=== PATIENT | male | born 1970 | race Caucasian/White ===

== ENCOUNTER 2020-06-22 08:31 | Outpatient (NON) | payer OTHER, SELFPAY ==
[2020-06-22 16:56] LABS: SARS-CoV-2 RNA PCR Positive
== END 2020-06-22 08:32 ==
LOC: ANHCOVIDDT 08:32
PROVIDERS: Family Provider Family Medicine; PCP Family Medicine; Visit Provider Physician Assistant
DX: U07.1 COVID-19 (principal)
CPT/HCPCS: C9803; U0003; U0005

== ENCOUNTER 2021-03-20 01:19 | Day surgery (SDC) | payer OTHER, SELFPAY ==
[2021-03-14 15:26] VITALS: BMI 31.4
--- NOTE | 2021-03-15 16:47 | PM.IMHP ---
H&P: HPI History of Present Illness Date/Time: 03/15/21 16:47 Chief Complaint: Hoarse voice, right vocal cord lesion Narrative: patient presents for planned surgical procedure. No change in symptoms no change in medical history. Review of Systems Constitutional: Constitutional: Denies fatigue, Denies fever(s) and Denies lethargy Eyes: Eyes: Denies blurry vision and Denies change in vision ENT: Reports as per HPI Cardiovascular: Cardiovascular: Denies chest pain Respiratory: Respiratory: Denies cough Endocrine: Endocrine: Denies fatigue Hematologic/Lymphatic: Hematologic/Lymphatic: Denies easy bleeding, Denies easy bruising and Denies lymphadenopathy Allergic/Immunologic: Allergic/Immunologic: Denies seasonal rhinorrhea [facility] Social History Social History Years smoked: 10 Smoking status: Former smoker Tobacco type: cigarettes Smoking end date: 05/26/05 Alcohol intake: never Substance use: never Substance use type: does not use Living arrangements: with family Spiritual care concerns: No Meds Home Medications and Allergies Home Medications Medication Instructions Recorded Confirmed Type cetirizine [Zyrtec] 10 mg PO DAILY 03/14/21 03/14/21 History omeprazole [Prilosec] 20 mg PO DAILY 03/14/21 03/14/21 History Allergies Allergy/AdvReac Type Severity Reaction Status Date / Time No Known Allergies Allergy Verified 03/14/21 15:25 Exam Const: General: cooperative, healthy appearing, comfortable, well developed and alert HENMT: Head: normal to inspection, normocephalic and atraumatic Ears: hearing grossly normal bilaterally, external ears normal, TM's normal bilaterally and EAC's normal General nose exam: Normal external nose present, Normal nares present, No nasal polyps present, Normal nasal mucous membranes and turbinates present and Normal septum present Face and sinus: normal facial exam Mouth: Yes Normal oral and palatal mucosa present, Yes lip normal, Yes tongue normal, Yes oropharynx normal and Yes moist mucous membranes Teeth and gingiva: dentition normal and gingiva normal Throat: posterior oropharynx normal, tonsils normal and uvula midline Eyes: General: appearance normal, both eyes and all related structures Periorbital: periorbital findings normal Eyelids: eyelids normal Conjunctivae: conjunctivae normal Sclera: sclerae normal Neck: Neck: normal visual inspection, full ROM and no lymphadenopathy Thyroid: thyroid normal Lymphatic: no lymphadenopathy noted Resp: Effort & Inspection: normal respiratory effort and able to speak in complete sentences Cardio: Jugular venous distension: no JVD Neuro: Cranial nerves: Yes CN's II-XII intact bilaterally Assessment and Plan Assessment and plan (1) Lesion of vocal cord: Code(s): J38.3 - Other diseases of vocal cords Status: Acute Assessment and Plan: Plan is for the OR for Microdirect laryngoscopy with biopsy to rule out any more sinister process. Risks and benefits were discussed in great detail including bleeding infection damage to surrounding structures damage to teeth throat pain musculoskeletal damage in the need for further procedures. Patient voiced understanding and agreed. Total operative time approximately 15 minutes (2) Throat pain: Code(s): R07.0 - Pain in throat Status: Acute (3) Hoarse voice quality: Code(s): R49.0 - Dysphonia Status: Acute
--- NOTE | 2021-03-19 16:22 | WPDANESEPPF ---
Anes - Initial Pre Proc Eval Procedure: Operation Date: 03/20/21 12:30 Proposed Procedures p Micro Direct Laryngoscopy, Laryngeal Biopsy - Memo Guevara MD Date/Time: 03/19/21 16:22 Surgeon: Memo Guevara MD Pre Op Diagnosis: vocal cord polyp Patient Data Age: 51 Gender: M Height: 1.8 m Weight: 102 kg Allergies Allergy/AdvReac Type Severity Reaction Status Date / Time No Known Allergies Allergy Verified 03/20/21 10:33 Home Medications Medication Instructions Recorded Confirmed Type cetirizine [Zyrtec] 10 mg PO DAILY 03/14/21 03/20/21 History omeprazole [Prilosec] 20 mg PO DAILY 03/14/21 03/20/21 History Patient hx anesthesia problems: none Family hx anesthesia problems: none Results Review: All pre-operative results and documents have been reviewed as part of the pre-operative evaluation. [facility] Past Medical History Medical History (Updated 03/19/21 @ 16:24 by Jay Crook MD) Chronic GERD Lesion of vocal cord Obesity Ureterolithiasis Social History Social History Years smoked: 10 Smoking status: Former smoker Tobacco type: cigarettes Smoking end date: 05/26/05 Alcohol intake: never Substance use: never Substance use type: does not use Living arrangements: with family Spiritual care concerns: No Anes - Eval Final PreProcedure Day of Procedure 03/19/21 16:22 Patient weight: obese Heart: regular rate and rhythm Lungs: clear to auscultation and normal air movement Airway: Mallampati scale class II Neurological: alert and oriented Last oral intake: >/= 8 hours ASA classification: II Emergent: no Anesthetic plan: proceed Anesthesia type and monitoring: general ETT Results Review: All pre-operative results and documents have been reviewed as part of the pre-operative evaluation. Informed Consent: The patient's anesthetic plan and its attendant risks and benefits were discussed with the patient/family/POA. Questions were solicited and answers provided to the satisfaction of the patient/family/POA.
[2021-03-20] VITALS (7 sets, daily range): BP systolic 121–134; BP diastolic 76–86; PULSE 52–75; RESP 12–18; TEMP 36.3–36.4; O2SAT 97–100
--- NOTE | 2021-03-20 07:10 | WPDHPUPDATE1 ---
History and Physical Update Update Date/Time: 03/20/21 07:10 History and Physical has been reviewed, including an updated exam of the patient. There are NO changes in the patient's condition. Risks, benefits, and alternatives have been discussed and questions answered. Patient agrees to proceed with procedure.
[2021-03-20] MEDS: LACTATED RINGERS 1,000 ML 30 ML IV CONT ×2 (10:56→12:55)
[2021-03-20] MEDS: OXYMETAZOLINE HCL 0.05% NAS 15 ML BTL (*BKC) 1 SPRAY NASAL (12:38)
[2021-03-20] MEDS: LIDOCAINE HCL 4% LOCAL INJ 5 ML AMP INFILTRATE (12:41)
--- NOTE | 2021-03-20 12:57 | W.PM.PROC2 ---
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 Patient brought to OR. Time-out performed. General anesthesia induced endotracheal tube secured the patient's airway. Bed rotated. Patient prepped and draped. Second time-out performed. [facility] laryngoscope placed in the patient's airway following placement of maxillary tooth mouth guard. Cords brought into view. Patient suspended. 4% lidocaine sprayed over the cords total of 1 cc. Endoscope brought into the field lesion brought into view aforementioned findings noted. Biopsy taken of right posterior vocal cord with up-biting and straight small and large cup forceps. Sufficient tissue for analysis obtained. Hemostasis achieved using application of Afrin-soaked pledgets for approximately 3 minutes. Pledgets removed endoscope reinserted no bleeding noted. Laryngoscope removed after being taken out of suspension. Maxillary tooth mouth guard removed. No loose dentition no blood. Care the patient was turned over to Anesthesiology. Blood loss 1 cc. I performed all dictated portions of the procedure. Estimated Blood Loss 1 Drains No Packing No Pathology yes Complications No immediate complications Condition stable Disposition PACU
[2021-03-20] MEDS: fentaNYL CITRATE INJ (*CRX) 100 MCG/2 ML VIAL 25 MCG IV PUSH ×2 (13:30→13:33)
[2021-03-20] MEDS: ONDANSETRON INJ 4 MG/2 ML VIAL IV PUSH (14:15)
== END 2021-03-20 14:39 | disposition home or self-care (01) ==
PROVIDERS: PCP Family Medicine; Visit Provider Otolaryngology
PROC: 0CJS8ZZ Inspection of Larynx, Via Natural or Artificial Opening Endoscopic (ICD-10-PCS; CPT 31535; principal; 2021-03-20 12:30)
DX: J38.3 Other diseases of vocal cords (principal); R07.0 Pain in throat; R49.0 Dysphonia; K21.9 Gastro-esophageal reflux disease without esophagitis; E66.9 Obesity, unspecified; Z68.31 Body mass index [BMI] 31.0-31.9, adult; Z87.891 Personal history of nicotine dependence
CPT/HCPCS: 31535; 88305; 88312; A9270; J0330; J1100; J2250; J2405; J2704; J3010; J7120

== ENCOUNTER 2022-04-01 08:38 | Outpatient (CLI) | payer OTHER, SELFPAY ==
--- NOTE | 2022-04-01 11:09 | ECHO_ITS ---
Patient Info Name: Joel Muniz Age: 52 years : 1970 Gender: Male Ht: 71 in Wt: 198 lbs BSA: 2.14 m2 HR: 55 bpm BP: 142 / 88 mmHg Technical Quality: Good Exam Date: 04/01/2022 11:31 AM Exam Location: [facility] Pulmonary Patient Status: Outpatient Admit Date: 04/01/2022 Staff Ordering Physician: Ronni Dang DO Human Factors Scientist: Junaid Bain RDCS, RT Attending Provider: Rnoni Dang DO Referring Physician: Alton MOHAN; Exam Type: CA echo doppler color flow Study Info Indications R00.2 - Palpitations Complete two-dimensional, color flow and Doppler transthoracic echocardiogram is performed. Strain analysis performed. Summary 1. Complete two-dimensional, color flow and Doppler transthoracic echocardiogram is performed. 2. Left ventricular chamber dimension is normal. 3. Left ventricular systolic function is normal, estimated at 60-65%. 4. The left ventricular diastolic function is grade II diastolic dysfunction. 5. E/e' 6 is not elevated. 6. Global longitudinal strain is normal at -19.8%. 7. There is mild mitral valve regurgitation. 8. There is trace tricuspid valve regurgitation. Left Ventricle E/e' 6 is not elevated. Global longitudinal strain is normal at -19.8%. Left ventricular chamber dimension is normal. Left ventricular systolic function is normal, estimated at 60-65%. The left ventricular diastolic function is grade II diastolic dysfunction. Right Ventricle Right ventricular systolic function is normal and with normal TAPSE 2.5 cm. Right ventricular chamber dimension is normal. Left Atria Left atrial chamber dimension is normal. Right Atria Right atrial chamber dimension is normal. Aortic Valve The aortic valve is trileaflet. There is no aortic valve stenosis. There is no aortic valve regurgitation. Pulmonic Valve There is no pulmonic regurgitation. Mitral Valve There is no mitral valve stenosis. There is mild mitral valve regurgitation. Tricuspid Valve There is trace tricuspid valve regurgitation. RVSP is not calculated due to an inadequate TR jet. Pericardium/Pleural There is no pericardial effusion. Inferior Vena Cava Normal inferior vena cava with >50% collapse upon inspiration consistent with normal right atrial pressure, 5 mmHg. Aorta The aortic root size at the sinus of Valsalva is normal. Left Ventricular Outflow Tract Name Value Normal LVOT 2D LVOT Diameter 2.1 cm LVOT Doppler LVOT Peak Gradient 3 mmHg LVOT Mean Gradient 2 mmHg LVOT VTI 21 cm LVOT VTI/AV VTI Ratio 0.9 LVOT Stroke Volume 74 ml LVOT CO 3.9 l/min LVOT CI 1.8 l/min/m2 Mitral Valve Name Value Normal MV Doppler
== END 2022-04-01 08:39 | disposition home or self-care (01) ==
PROVIDERS: PCP Family Medicine; Visit Provider Internal Medicine Cardiovascular Disease
DX: R00.2 Palpitations (principal); I34.0 Nonrheumatic mitral (valve) insufficiency
CPT/HCPCS: 93306

== ENCOUNTER → 2022-04-09 09:00 | Outpatient (CLI) | payer OTHER, SELFPAY ==
--- NOTE | ~2022-04-09 | CT_ITS ---
EXAMINATION: CT brain wo con DATE: 04/09/2022 09:18 INDICATION: Headaches, gait disturbance, visual disturbance. Dizziness. TECHNIQUE: Computed tomography (CT) of the head was performed without intravenous contrast. The mA wa s adjusted according to patient size. Iterative reconstruction technique was employed. Exam dose: 59 9.57 mGy-cm total exam DLP. COMPARISON: None FINDINGS: No intracranial mass lesion or hemorrhage or cerebrovascular accident. No midline shift or mass effect effect. Normal ventricular size. Normal rossi-white matter differentiation. No subdural or epidural hematoma. The mastoid air cells are normally developed and aerated. Included paranasal sinuses are unremarkable . No fracture or bone destruction of the cranial vault. IMPRESSION: No significant abnormality Reviewed, dictated and finalized at [facility]. Reviewed, dictated and finalized at location [facility]. ELEVATOR WORKER IMPRESSION: No significant abnormality
== END ==
PROVIDERS: PCP Family Medicine; Visit Provider Physician Assistant
DX: R51.9 Headache, unspecified (principal); R26.89 Other abnormalities of gait and mobility; H53.9 Unspecified visual disturbance; R42 Dizziness and giddiness
CPT/HCPCS: 70450

== ENCOUNTER 2024-06-03 08:27 | Outpatient (CLI) | payer OTHER, SELFPAY ==
--- NOTE | 2024-06-03 08:31 | EST_ITS ---
Patient Info Name: Joel Muniz Age: 54 years : 1970 Gender: Male Ht: 71 in Wt: 190 lbs BSA: 2.09 m2 HR: 56 bpm BP: 114 / 71 mmHg Heart Rhythm: Sinus Rhythm Exam Date: 06/03/2024 8:53 AM Patient Status: Outpatient Admit Date: 06/03/2024 Staff Ordering Physician: Ronni Dang DO Attending Provider: Ronni Dang DO Exercise Technologist: Agatha Neri CT Exercise Physician: Ronni Dang DO Exam Type: CA stress test treadmill Study Info Indications R07.89 - Other chest pain An exercise stress test was performed. Summary 1. 1. Negative Ton exercise stress test for ischemic ST changes by ECG criteria. 2. 2. Good functional capacity, achieving 12 METs of workload. 3. 3. Appropriate HR response to exercise. 4. 4. Appropriate HR recovery at 1 minute post exercise. 5. 5. No imaging with stress testing. 6. 6. Patient informed of the above results. Protocol: Ton Stress ECG Details Stage: REST Duration (min): 1 min : 6 sec Speed (mph): 0.0 Grade (%): 0 HR (bpm): 55 SBP (mmHg): 114 DBP (mmHg): 71 METS: --- Stage: REST Duration (min): 4 min : 46 sec Speed (mph): 0.0 Grade (%): 0 HR (bpm): 64 SBP (mmHg): 114 DBP (mmHg): 71 METS: --- Stage: STAGE 1 Duration (min): 1 min : 0 sec Speed (mph): 1.7 Grade (%): 10 HR (bpm): 82 SBP (mmHg): 114 DBP (mmHg): 71 METS: --- Stage: STAGE 1 Duration (min): 2 min : 0 sec Speed (mph): 1.7 Grade (%): 10 HR (bpm): 82 SBP (mmHg): 114 DBP (mmHg): 71 METS: --- Stage: STAGE 1 Duration (min): 3 min : 0 sec Speed (mph): 1.7 Grade (%): 10 HR (bpm): 80 SBP (mmHg): 137 DBP (mmHg): 73 METS: --- Stage: STAGE 2 Duration (min): 1 min : 0 sec Speed (mph): 2.5 Grade (%): 12 HR (bpm): 92 SBP (mmHg): 137 DBP (mmHg): 73 METS: --- Stage: STAGE 2 Duration (min): 2 min : 0 sec Speed (mph): 2.5 Grade (%): 12 HR (bpm): 94 SBP (mmHg): 141 DBP (mmHg): 74 METS: --- Stage: STAGE 2 Duration (min): 3 min : 0 sec Speed (mph): 2.5 Grade (%): 12 HR (bpm): 93 SBP (mmHg): 141 DBP (mmHg): 74 METS: --- Stage: STAGE 3 Duration (min): 1 min : 0 sec Speed (mph): 3.4 Grade (%): 14 HR (bpm): 107 SBP (mmHg): 136 DBP (mmHg): 82 METS: --- Stage: STAGE 3 Duration (min): 2 min : 0 sec Speed (mph): 3.4 Grade (%): 14 HR (bpm): 111 SBP (mmHg): 136 DBP (mmHg): 82 METS: --- Stage: STAGE 3 Duration (min): 3 min : 0 sec Speed (mph): 3.4 Grade (%): 14 HR (bpm): 113 SBP (mmHg): 234 DBP (mmHg): 82 METS: --- Stage: STAGE 4 Duration (min): 1 min : 0 sec Speed (mph): 4.2 Grade (%): 16 HR (bpm): 131 SBP (mmHg): 189 DBP (mmHg): 86 METS: --- Stage: STAGE 4 Duration (min): 2 min : 0 sec Speed (mph): 4.2 Grade (%): 16 HR (bpm): 136 SBP (mmHg): 188 DBP (mmHg): 87 METS: --- Stage: STAGE 4 Duration (min): 2 min : 38 sec Speed (mph): 4.2 Grade (%): 16 HR (bpm): 140 SBP (mmHg): 188 DBP (mmHg): 87 METS: --- Stage: RECOVERY Duration (min): 0 min : 21 sec Speed (mph): 0.0 Grade (%): 0 HR (bpm): 133 SBP (mmHg): 188 DBP (mmHg): 87 METS: --- Stage: RECOVERY Duration (min): 1 min : 21 sec Speed (mph): 0.0 Grade (%): 0 HR (bpm): 97 SBP (mmHg): 188 DBP (mmHg): 87 METS: --- Stage: RECOVERY Duration (min): 2 min : 21 sec Speed (mph): 0.0 Grade (%): 0 HR (bpm): 71 SBP (mmHg): 188 DBP (mmHg): 87 METS: --- Stage: RECOVERY Duration (min): 3 min : 11 sec Speed (mph): 0.0 Grade (%): 0 HR (bpm): 79 SBP (mmHg): 130 DBP (mmHg): 93 METS: --- Rest HR: 64 bpm Peak HR: 140 bpm Rest Sys BP: 114 mmHg Peak Sys BP: 188 mmHg Max Pred HR: 165 bpm % Max Pred HR: 85 % Target HR: 140 bpm Max RPP: 26,320 bpm*mmHg Costello Score: -1 Termination Reason: Reached target heart rate or workload Cardiac Symptoms: None Max ST Seg Deviation: 2.50 mm Total Time: 11 min : 38 sec Rest Howard BP: 71 mmHg Peak Howard BP: 82 mmHg Angina Score: None Total METS: 12.1 Resting ECG Sinus rhythm. Stress ECG No ST changes. Arrhythmias None. Report Signatures
== END 2024-06-03 08:28 | disposition home or self-care (01) ==
PROVIDERS: PCP Family Medicine; Visit Provider Internal Medicine Cardiovascular Disease
DX: R07.9 Chest pain, unspecified (principal)
CPT/HCPCS: 93017

== ENCOUNTER 2024-10-20 00:57 | Day surgery (SDC) | payer OTHER, SELFPAY ==
[2024-10-12 11:01] VITALS: BMI 27.9
--- OUTSIDE RECORDS SUMMARY | 2024-10-20 00:59 | XMS_ITS ---
Author Organization [facility] Address [address] [address] Care Team Providers Care Reimbursement Specialist Name Role Phone Alejandro Reed Primary Care Provider SANTIAGO Goodwin Unavailable [phone] Medications Medication SIG (Take, Route, Frequency, Duration) Notes Start Date End Date Status Metoprolol Succinate ER 25 MG Oral for 90 Days Active ZyrTEC Active PriLOSEC Active Encounters Encounter Location Date Provider Diagnosis [address] [id number] 07/12/2024 SANTIAGO NOVOA Plan Of Treatment No Information Progress Notes * AARON, JoelDOB:1970 (54 yo M)Acc No.[id number]:07/12/2024 Patient: Joel JORDAN Provider: Ramy Novoa MD :1970 A ge:54 Y S ex:Male Date:07/12/2024 Address:[address] [place] [address] Pcp:Alejandro Reed Subjective: * Chief Complaints: * * Medical History: * Medications: T aking PriLOSEC , Taking ZyrTEC , Taking Metoprolol Succinate ER 25 MG Tablet Extended Release 24 Hour Oral Objective: * Vitals: Assessment: Plan: * Treatment: * * Electronic signature of DUNG NOVOA MD on 10/20/2024 at 12:59 AM CDT Sign off status: Pending * Provider: Ramy Novoa MD Date: 07/12/2024 Generated for Sari miguel/Stephani/eTlandonsmitting on: 10/20/2024 12:59 AM CDT
--- OUTSIDE RECORDS SUMMARY | 2024-10-20 01:00 | XMS_ITS | Patient Health Record ---
Author Organization [facility] Address [address] [facility] [address] [place] [address] Care Team Providers Care Skid Man Name Role Phone Alejandro Reed Primary Care Provider SANTIAGO Goodwin Unavailable [phone] Reason For Referral No Information Medications Medication SIG (Take, Route, Frequency, Duration) Notes Start Date End Date Status ZyrTEC Active Metoprolol Succinate ER 25 MG Oral for 90 Days Active PriLOSEC Active Social History Tobacco Use: Social History Observation Description Date Details (start date - stop date) Never Smoker NA - NA Tobacco Control (Standard) Question Answer Notes Tobacco use: Nonsmoker AUDIT-C (Standard) Question Answer Notes Did you have a drink contain ing alcohol in the past year? Yes How often did you have a dri nk containing alcohol in the past year? 2 to 4 times a month (2 points) How many drinks did you have on a typical day when you were drinking in the past year? 1 or 2 drinks (0 point) How often did you have six o r more drinks on one occasion in the past year? Less than monthly (1 point) Points 3 Interpretation Negative Vital Signs Heart Rate 56 /min 07/02/2024 Blood pressure diastolic 78 mm Hg 07/02/2024 Height 71 in 07/02/2024 Blood pressure systolic 120 mm Hg 07/02/2024 Weight 200 lbs 07/02/2024 BMI 27.89 kg/m2 07/02/2024 Encounters Encounter Location Date Provider [facility] [address] [id number] 07/12/2024 SANTIAGO NOVOA [address] [id number] 07/19/2024 SANTIAGO NOVOA [facility] [address] [facility] [address] [place] [address] 07/02/2024 SANTIAGO NOVOA Palpitations R00.2 and Dizziness and giddiness R42 [facility] [address] [facility] [address] [place] [address] 07/02/2024 SANTIAGO NOVOA [facility] [address] [facility] [address] [place] [address] 07/12/2024 SANTIAGO NOVOA [facility] [address] [facility] [address] [place], [place] [phone] 08/05/2024 SANTIAGO NOVOA Assessments Encounter Date Diagnosis (ICD Code) Assessment Notes Treatment Notes Treatment Clinical Notes Section Notes 07/02/2024 Palpitations (ICD-10 - R00.2) Significantly symptomatic palpitations and abnormal 2-4 weeks monitoring in the last 2 years,echo orderd,spells of palpitations limiting him.Echo today ok,will benefit from ilr for better diagnosis and treatment options since has had abnormal but inconclusive monitors and remains symptomatic.Will add/increase Mg supplemet to bid,ok to continue with toprol 07/02/2024 Dizziness and giddiness (ICD-10 - R42) Plan Of Treatment No Information Insurance Providers Payer Name Payer Address Payer Phone Subscriber Number Group Number Insured Name Patient Relationship to Insured Coverage Start Date Coverage End Date [employer] [address] [address] [facility] [place] [address] [id number] Joel Muniz Self - patient is the insured Medical (General) History Medical History History ICD Code Heart Murmur Kidney Stones Surgical History Surgery Date(Month/Year) Shoulder 2012 Kidney Stones 2006 Parotidectomy 2014 Labrum
--- OUTSIDE RECORDS SUMMARY | 2024-10-20 01:00 | XMS_ITS | CONTINUITY OF CARE DOCUMENT ---
Author Name nadia zuniga Address Unknown Organization [facility] Address [address] [facility] [facility] [address] [place] [address] Phone [phone] Care Team Providers Care Dietary Services Director Name Role Phone Werner YOU, Marcos Unavailable [phone] JOY NOLASCO MD Unavailable JOY NOLASCO MD Unavailable PROBLEMS Condition Status Date Provider Notes Palpitations active Pattie Willis Chest pain active Pattie Willis ENCOUNTERS Date Type Provider Location Encounter Diag nosis - In-person encounter Office Visit Marcos Caldera MD [facility] Office VITAL SIGNS Date Observation Value Provider blood pressure, diastolic 70 mm[Hg] Mickey Billy blood pressure, systolic 124 mm[Hg] Donato Billy pulse rate 61 /min Farhana Billy oxygen saturation, oximetry 99 % Farhana Billy respiratory rate E&M 18 /min Farhana Billy Body Mass Index (Ratio) 31.46 kg/m2 Cindy Billy height E&M 72 [in_i] Farhana Billy weight E&M 232 [lb_av] Farhana Billy ALLERGIES No Known Drug Allergies HISTORY OF MEDICATION USE Medication Status Instructions Dates Provider Indications Com ments ALL DAY ALLERGY CAPSULE active 1 CAP DAILY Farhana anthony SOCIAL HISTORY Date Observation Value Provider social history E&M Patient is a former smoker. Smoking History: Noris jennifer is a former smoker. Leticia Miranda RN social history reviewed E&M revi ewed - no changes required Leticia Miranda RN smoking, year quit 2006 Farhana mccracken cigarette use yes Farhana Billy smoking status Former smoker Leticia nguyen RN FAMILY HISTORY Family Member Condition Full Sister Family History Beena miller Cancer: Father Family History of Co gerardo Cancer: INSURANCE PROVIDERS Payer name Policy type / Coverage type Theodore red democrat ID [employer] [id number] TREATMENT PLAN Date Name Performer Cardiology - ltr fxd : he was admitted with farily typical cp and had otherwise negative evalaution- he was discharged and had negative outpt stress test. His chest pain is now completely resolved. no further evaluation needed Leticia Miranda RN Cardiology - ltr fxd :Reports occasional skipped beat, lasts 1 second and resolves. c ould do monitor but palpitaitons don't bother him often --will leave alone for now Leticia Miranda RN HISTORY OF PROCEDURES Procedure Date Procedure Name Provider Procedure Notes S tatus SNOMED-CT: [id number] Current Medications Documented Marcos Caldera MD completed Stress EKG Asad Steele MD completed Cardiolite, 2 units Marcos Caldera MD c ompleted SPECT Images Asad Steele MD complet ed
--- OUTSIDE RECORDS SUMMARY | 2024-10-20 01:00 | XMS_ITS ---
Author Organization [facility] Address [address] [address] Care Team Providers Care Head Stock Transfer Clerk Name Role Phone Alejandro Reed Primary Care Provider UnavailSANTIAGO Jara Unavailable [phone] REASON FOR VISIT ilr pre cert Medications Medication SIG (Take, Route, Frequency, Duration) Notes Start Date End Date Status ZyrTEC Active Metoprolol Succinate ER 25 MG Oral for 90 Days Active PriLOSEC Active Encounters Encounter Location Date Provider Diagnosis [address] [id number] 07/19/2024 SANTIAGO NOVOA Plan Of Treatment No Information Progress Notes * AARON, WilbeataDOB:1970 (54 yo M)Acc No.[id number]:07/19/2024 Patient: Joel JORDAN Provider: Ramy Novoa MD :1970 A ge:54 Y S ex:Male Date:07/19/2024 Address:[address] [place], [place] [phone] Pcp:Alejandro Reed Subjective: * Chief Complaints: * 1 . Ilr pre cert. * Medical History: * Medications: T aking PriLOSEC , Taking ZyrTEC , Taking Metoprolol Succinate ER 25 MG Tablet Extended Release 24 Hour Oral Objective: * Vitals: Assessment: Plan: * Treatment: * * Electronic signature of DUNG NOVOA MD on 10/20/2024 at 12:59 AM CDT Sign off status: Pending * Provider: Ramy Novoa MD Date: 07/19/2024 Generated for Sari miguel/Stephani/Nerysmitting on: 0 10/20/2024 12:59 AM CDT
--- OUTSIDE RECORDS SUMMARY | 2024-10-20 01:00 | XMS_ITS | Clinical Summary ---
Author Organization [facility] Address [address] [address] Care Team Providers Care Credit Reporting Clerk Name Role Phone Alejandro Reed MD Primary Care Provider [phone] Source Comments [facility],non-owned Affiliates and Associated Physician Practices is amultiple site organization consisting of ambulatory clinics and hospital sitesin [place], [place], [place] and [place]. This disclosure is being madepursuant to the Care Everywhere program and may not contain all information available regarding this patient. Last updated 18.[facility] Allergies No known active allergies Medications * Be aware that medications may not be up to date on this document. Alwaysverify current medications with the patient. aspirin EC (ECOTRIN) 81 MG tablet Take 1 Tab by mouth once daily 0 6 Active Additional Information Patient not taking.Reported on 06/14/2019 aspirin EC (ECOTRIN) 81 MG tablet Take 1 Tab by mouth once daily 0 6 Active Additional Information Patient not taking.Reported on 06/14/2019 nitroGLYCERIN (NITROSTAT) 0.3 MG tablet Dissolve 1 Tab under the tongue every 5 minutes as needed for Angina 25 Tab 0 6 Active Additional Information Patient not taking.Reported on 06/14/2019 atorvastatin (LIPITOR) 10 MG tablet Take 1 Tab by mouth at bedtime 90 Tab 3 6 Active Additional Information Patient not taking.Reported on 06/14/2019 HYDROcodone-dereje taminophen (NORCO) 10-325 MG tablet Take 1 Tab by mouth every 4 hours as needed for Pain 20 Tab 7 Active Additional Information Patient not taking.Reported on 06/14/2019 Cetirizine HCl (ZYRTEC ALLERGY PO) Active Active Problems Problem Noted Date Diagnosed Date Chest pain in adult 09/30/2015 Resolved Problems Problem Noted Date Diagnosed Date Resolved Date Viral upper respiratory tract infection 04/07/2021 04/21/2021 Social History Tobacco Use Types Packs/Day Years Used Date Smoking Tobacco: Former Smokeless Tobacco: Never Tobacco Cessation:Counseling Given: No Alcohol Use Standard Drinks/Week Comments Yes 0 (1 standard drink = 0.6 oz pur e alcohol) occasional Sex and Gender Information Value Date Recorded Sex Assigned at Not on file Legal Sex Male 4:49 AM WORSHIP DIRECTOR Gender Identity Not on file Sexual Orientation Not on file Last Filed Vital Signs Vital Sign Reading Time Taken Comments Blood Pressure 132/86 06/14/2019 2:22 PM WORSHIP DIRECTOR Pulse 68 04/07/2021 3:58 PM WORSHIP DIRECTOR Temperature 36.6 C (97.9 F) 04/07/2021 3:58 PM WORSHIP DIRECTOR Respiratory Rate 16 06/14/2019 2:22 PM WORSHIP DIRECTOR Oxygen Saturation 98% 04/07/2021 3:58 PM WORSHIP DIRECTOR Inhaled Oxygen Concentration - - Weight 99.8 kg (220 lb) 04/07/2021 3:58 PM WORSHIP DIRECTOR Height 180.3 cm (5' 11) 04/07/2021 3:58 PM WORSHIP DIRECTOR Body Mass Index 30.68 04/07/2021 3:58 PM WORSHIP DIRECTOR Plan of Treatment Health Maintenance Due Date Last Done Comments COLOGUARD (AGES 45-75) - COL ON CA SCREENING 1969 COLON MONITORING 1969 COLONOSCOPY - COLON CA SCREENING 1969 CT COLONOGRAPHY - COLON CA SCREENING 1969 Colorectal Cancer Screening 1969 FIT - COLON CA SCREENING 1969 FLEX SIG - COLON CA SCREENING 1969 HIV SCREENING 01/23/1984 HEPATITIS C SCREENING 01/18/1987 DTAP/TDAP/TD VACCINES (1 - Tdap) 01/23/1988 HEPATITIS B VACCINE (1 of 3 - 19+ 3-dose series) 01/23/1988 PNEUMOCOCCAL VACCINE 50+ (1 of 1 - PCV) 2019 ZOSTER VACCINE (1 of 2) 2019 SCREENING FOR DIABETES 04/07/2021 7, 09/29/2015 COVID-19 VACCINE (3 - 2023-2 5 season) 2024 10/02/2020, 09/11/2020 DEPRESSION SCREENING 05/26/2024 INFLUENZA VACCINE (Season Ended) 2025 HIB VACCINE Aged Out No longer eligi ble based on patient's age to complete this topic HPV VACCINE Aged Out No longer eligi ble based on patient's age to complete this topic MENINGOCOCCAL (Group B) VACCINE SHARED DECISION-MAKING Aged Out No longer eligible based on patient's age to complete this topic MENINGOCOCCAL GROUPS A/C/Y/W VACCINE Aged Out No longer eligible b ased on patient's age to complete this topic Procedures Procedure Name Priority Date/Time Associated Diagnosis Comments BASIC METABOLIC PANEL (CALCIUM TOTAL) STAT 06/24/2016 1:18 PM WORSHIP DIRECTOR from Last 3 Months or Most Recently Relevant to Health Maintenance Results * BASIC METABOLIC PANEL (CALCIUM TOTAL) (06/24/2016 1:18 PM WORSHIP DIRECTOR) Glucose 97 74 - 106 mg/dL 06/24/2016 1:43 PM WORSHIP DIRECTOR [facility] Sodium 141 136 - 145 mmol/L 06/24/2016 1:43 PM WORSHIP DIRECTOR [facility] Potassium 4.5 3.5 - 5.1 mmol/L 06/24/2016 1:43 PM [facility] Chloride 107 98 - 107 mmol/L 06/24/2016 1:43 PM WORSHIP DIRECTOR [facility] CO2 25 22 - 31 mmol/L 06/24/2016 1:43 PM WORSHIP DIRECTOR [facility] Calcium 8.9 8.5 - 10.1 mg/dL 06/24/2016 1:43 PM [facility] Anion Gap 9 8 - 16 mmol/L 06/24/2016 1:43 PM WORSHIP DIRECTOR [facility] BUN 14 7 - 21 mg/dL 06/24/2016 1:43 PM [facility] Creatinine 1.20 0.50 - 1.30 mg/dL 06/24/2016 1:43 PM WORSHIP DIRECTOR [facility] eGFR by MDRD >60 >60 mL/min/1.7 3m2 06/24/2016 1:43 PM WORSHIP DIRECTOR [facility] eGFR by MDRD >60 >60 mL/min/1.7 3m2 06/24/2016 1:43 PM WORSHIP DIRECTOR [facility] Blood BLOOD SPECIMEN / Unknown 06/24/2016 1:18 PM WORSHIP DIRECTOR 06/24/2016 1:24 PM WORSHIP DIRECTOR Linwood Rosado DO LAB - CHEMISTRY ORDERABLES Final Result [facility] [id number] [place] [address] from Last 3 Months or Most Recently Relevant to Health Maintenance Insurance [facility] C[facility] FORMER[facility] CARE Advance Directives * Full Code (Latest Code Status on File) Date Activated Date Inactivated Comments 09/29/2015 8:38 PM 09/30/2015 12:51 PM Care Teams Credit Reporting Clerk Relationship Specialty Start Date End Date Alejandro Reed MD [address] [place] [address] PCP - General 03/21/21
[2024-10-20 06:15] VITALS: BP 108/64; PULSE 68; RESP 20; TEMP 36.1; O2SAT 99
[2024-10-20] MEDS: LACTATED RINGERS 1,000 ML 150 ML IV CONT (06:31)
--- NOTE | 2024-10-20 07:11 | PM.IMHP ---
H&P: HPI History of Present Illness Date/Time: 10/20/24 07:11 Chief Complaint: History of polyps -family history of colorectal cancer Narrative: This patient has family history of colorectal cancer. his father had when he was 63. In addition, the patient's last colonoscopy was in 2019, finding 3 polyps. Review of Systems Review of Systems: All systems reviewed & are unremarkable except as noted in HPI and below PMFSH Past Medical History Medical History Chronic GERD Lesion of vocal cord Obesity Ureterolithiasis Social History Social History Years smoked: 10 Smoking status: Former smoker Tobacco type: cigarettes Smoking end date: 05/26/05 Alcohol intake: never Substance use: never Substance use type: does not use Living arrangements: with family Occupation/Education: occupation Gender identity (if verbalized by the patient): Male Sexual Orientation (if Verbalized by the Patient): Straight or Heterosexual Spiritual care concerns: No Meds Home Medications and Allergies Home Medications ?Medication ?Instructions ?Recorded ?Confirmed ?Type cetirizine 10 mg tablet (Zyrtec) 10 mg PO DAILY 03/14/21 10/12/24 History omeprazole 20 mg capsule,delayed 20 mg PO DAILY 03/14/21 10/20/24 History release metoprolol succinate 25 mg 25 mg PO DAILY #90 tabs 08/13/24 10/20/24 Rx tablet,extended release 24 hr Allergies Allergy/AdvReac Type Severity Reaction Status Date / Time No Known Allergies Allergy Verified 10/20/24 06:14 Vital Signs Vital Signs - 24 hr 10/20/24 06:15 Temperature 97.0 F L Pulse Rate 68 Respiratory Rate 20 Blood Pressure 108/64 Pulse Oximetry 99 Oxygen Delivery Room Air Exam Const: General: cooperative and healthy appearing Resp: Effort & Inspection: normal respiratory effort and able to speak in complete sentences Auscultation: clear to auscultation bilaterally Cardio: Rate: regular rate Rhythm: regular rhythm GI: Inspection: normal to inspection GI Palp: No No hepatosplenomegaly present Auscultation: normal bowel sounds Rectal Exam: deferred Skin: General skin exam: normal color Psych: Appearance: grossly normal Mental Status: mental status grossly normal Assessment and Plan Assessment and plan (1) Family history of colorectal cancer: Code(s): Z80.0 - Family history of malignant neoplasm of digestive organs Status: Acute Assessment and Plan: The patient is deemed a good candidate for the procedure. Consent signed. Will proceed.
--- NOTE | 2024-10-20 07:26 | WPDANESEPPF ---
Anes - Initial Pre Proc Eval Procedure: Operation Date: 10/20/24 07:30 Proposed Procedures p Screening Colonoscopy - Palmer Owens MD Date/Time: 10/20/24 07:26 Surgeon: Palmer Owens MD Pre Op Diagnosis: screening colon Patient Data Age: 54 Gender: M Height: 1.8 m Weight: 90.7 kg Last Vital Signs Temp 97.0 F L 10/20/24 06:15 Pulse 68 10/20/24 06:15 Resp 20 10/20/24 06:15 BP 108/64 10/20/24 06:15 Pulse Ox 99 10/20/24 06:15 O2 Del Method Room Air 10/20/24 06:15 Allergies Allergy/AdvReac Type Severity Reaction Status Date / Time No Known Allergies Allergy Verified 10/20/24 06:14 Home Medications ?Medication ?Instructions ?Recorded ?Confirmed ?Type cetirizine 10 mg tablet (Zyrtec) 10 mg PO DAILY 03/14/21 10/12/24 History omeprazole 20 mg capsule,delayed 20 mg PO DAILY 03/14/21 10/20/24 History release metoprolol succinate 25 mg 25 mg PO DAILY #90 tabs 08/13/24 10/20/24 Rx tablet,extended release 24 hr Patient hx anesthesia problems: none Family hx anesthesia problems: none Results Review: All pre-operative results and documents have been reviewed as part of the pre-operative evaluation. [facility] Past Medical History Medical History Chronic GERD Lesion of vocal cord Obesity Ureterolithiasis Social History Social History Years smoked: 10 Smoking status: Former smoker Tobacco type: cigarettes Smoking end date: 05/26/05 Alcohol intake: never Substance use: never Substance use type: does not use Living arrangements: with family Occupation/Education: occupation Gender identity (if verbalized by the patient): Male Sexual Orientation (if Verbalized by the Patient): Straight or Heterosexual Spiritual care concerns: No Anes - Eval Final PreProcedure Day of Procedure 10/20/24 07:26 Patient weight: normal Heart: regular rate and rhythm Lungs: clear to auscultation Airway: Mallampati scale class II Neurological: alert and oriented Last oral intake: >/= 8 hours ASA classification: II Emergent: no Anesthetic plan: proceed Anesthesia type and monitoring: general GIVS and standard monitoring Results Review: All pre-operative results and documents have been reviewed as part of the pre-operative evaluation. Informed Consent: The patient's anesthetic plan and its attendant risks and benefits were discussed with the patient/family/POA. Questions were solicited and answers provided to the satisfaction of the patient/family/POA.
[2024-10-20 07:52] VITALS: BP 110/66; PULSE 59; RESP 14; O2SAT 100
[2024-10-20 08:02] VITALS: BP 109/68; PULSE 59; RESP 24; O2SAT 100
[2024-10-20 08:12] VITALS: BP 107/70; PULSE 60; RESP 18; O2SAT 100
== END 2024-10-20 08:15 | disposition home or self-care (01) ==
PROVIDERS: PCP Family Medicine; Referring Provider Student in an Organized Health Care Education/Training Program; Visit Provider Internal Medicine Gastroenterology
PROC: 0DJD8ZZ Inspection of Lower Intestinal Tract, Via Natural or Artificial Opening Endoscopic (ICD-10-PCS; CPT 45378; principal; 2024-10-20 07:30)
DX: Z12.11 Encounter for screening for malignant neoplasm of colon (principal); K64.8 Other hemorrhoids; K57.30 Diverticulosis of large intestine without perforation or abscess without bleeding; K21.9 Gastro-esophageal reflux disease without esophagitis; Z87.891 Personal history of nicotine dependence; Z86.0100 Personal history of colon polyps, unspecified; Z80.0 Family history of malignant neoplasm of digestive organs
CPT/HCPCS: 45378; J2003; J2704; J7120